=== PATIENT | male | born 1980 | race Two or more races ===

== ENCOUNTER 2023-06-23 13:10 | Emergency (ER) | payer OTHER ==
[~2023-06-23] VITALS: Ht 185.4 cm; Wt 81.6 kg
[2023-06-23 16:40] LABS: HEMATOCRIT 40.2 % (39.0-48.0); HEMOGLOBIN 13.9 g/dL (13-16.00); MEAN CELL VOLUME 91.4 fL (80.0-100.00); MEAN CORPUSCULAR HEMOGLOBIN 31.6 pg (27.00-32.0); MEAN CORPUSCULAR HGB CONC 34.6 g/dl (32.0-36.0); PLATELET COUNT 169 K/uL (150-450); RED CELL DISTRIBUTION WIDTH 13.8 % (11.5-14.5)
[2023-06-23 16:46] LABS: PH,URINE 7.5 (5.0-8.0); URINE APPEARANCE Clear; URINE BILIRRUBIN Negative (NEGATIVE); URINE BLOOD Negative; URINE COLOR Yellow; URINE GLUCOSE Negative (NEGATIVE); URINE LEUKOCYTE Negative; URINE NITRATE Negative; URINE PROTEIN Negative (NEGATIVE); URINE UROBILINOGEN 0.2 E.U./dl
[2023-06-23 16:50] LABS: URINE BACTERIA 8.8 uL (0.0-1933); URINE RBC 16.3 uL (0.0-20.8)
[2023-06-23 16:55] LABS: URINE EPITHELIAL CELLS 0.4 uL (0.0-38.8); URINE WBC 1.6 uL (0.0-23.2)
[2023-06-23 17:00] LABS: CALCIUM 9.4 mg/dL (8.5-10.1); CREATININE SERUM 0.97 mg/dL (0.70-1.30); GFR 83.69; POTASSIUM 3.8 mEq/L (3.5-5.1)
== END 2023-06-23 19:00 | disposition home or self-care (01) ==
LOC: ER 13:11
PROVIDERS: Emergency Medicine
DX: R42 Dizziness and giddiness (principal)